=== PATIENT | male | born 1970 ===

== ENCOUNTER 2018-12-01 12:49 | Emergency (ER) | payer OTHER ==
--- NOTE | 2018-12-01 13:26 | ED PDOC ---
Lower Extremity Pain/Injury Time Seen by Provider: 12/01/18 13:18 Chief Complaint (Nursing): Lower Extremity Problem/Injury Chief Complaint (Provider): Lower Extremity Problem/Injury History Per: Patient History/Exam Limitations: no limitations Onset/Duration Of Symptoms: Days (x14) Current Symptoms Are (Timing): Still Present Additional Complaint(s): 48 y/o male with a PMHx of right nephrectomy s/p trauma presents to the ED for evaluation of bilateral thigh pain, onset two weeks ago. Patient states that at work, he lifts heavy objects using his legs. Otherwise, patient denies back pain, weakness, paresthesias, fever, chest pain and shortness of breath. PMD: none provided Past Medical History Reviewed: Historical Data, Nursing Documentation, Vital Signs Vital Signs: Last Vital Signs Temp 97.4 F L 12/01/18 13:09 Pulse 101 H 12/01/18 13:09 Resp 20 12/01/18 13:09 BP 131/78 12/01/18 13:09 Pulse Ox 99 12/01/18 13:09 - Medical History PMH: No Chronic Diseases - Surgical History Surgical History: No Surg Hx - Family History Family History: States: Unknown Family Hx - Home Medications Home Medications: Ambulatory Orders Medication Instructions Recorded traMADol [Ultram] 50 mg PO Q8 #10 tab 12/01/18 - Allergies Allergies/Adverse Reactions: Allergies Allergy/AdvReac Type Severity Reaction Status Date / Time No Known Allergies Allergy Verified 12/01/18 13:09 Review of Systems ROS Statement: Except As Marked, All Systems Reviewed And Found Negative Constitutional: Negative for: Fever Cardiovascular: Negative for: Chest Pain Respiratory: Negative for: Shortness of Breath Musculoskeletal: Positive for: Leg Pain (bilteral thigh pain). Negative for: Back Pain Neurological: Negative for: Weakness Physical Exam - Reviewed Nursing Documentation Reviewed: Yes Vital Signs Reviewed: Yes - Physical Exam Appears: Positive for: No Acute Distress Head Exam: Positive for: ATRAUMATIC Skin: Positive for: Normal Color Eye Exam: Positive for: Normal appearance Neck: Positive for: Normal Cardiovascular/Chest: Positive for: Regular Rate, Rhythm. Negative for: Murmur Respiratory: Positive for: Normal Breath Sounds. Negative for: Respiratory Distress Back: Positive for: Normal Inspection. Negative for: L CVA Tenderness, R CVA Tenderness, Vertebral Tenderness, Other (spinal tenderness or deformity) Extremity: Positive for: Tenderness (tenderness to the anterior thighs bilaterally). Negative for: Swelling (thigh), Other (erythema) Neurologic/Psych: Positive for: Alert, Oriented. Negative for: Motor/Sensory Deficits - Laboratory Results Result Diagrams: 12/01/18 13:30 - ECG O2 Sat by Pulse Oximetry: 99 (RA) Pulse Ox Interpretation: Normal Medical Decision Making Medical Decision Making: Time: 1322 Impression: Will obtain CPK and Renal function to rule out rhabdomyolysis and US to rule out DVT Plan: -- CMP -- Creatine Phosphokinase -- US Duplex Lower Extremity Vein Bilateral US Time: 1434 US RESULTS FINDINGS: COMMON FEMORAL VEIN: Right CFV: Unremarkable. Left CFV: Unremarkable. SUPERFICIAL FEMORAL VEIN: Right SFV: Unremarkable. Left SFV: Unremarkable. POPLITEAL VEIN: Right Popliteal: Unremarkable. Left Popliteal: Unremarkable. POSTERIOR TIBIAL VEIN: Right PTV: Unremarkable. Left PTV: Unremarkable. OTHER FINDINGS: None. IMPRESSION: No evidence of deep venous thrombosis. Scribe Attestation: Documented by Oseas Fuentes, acting as a scribe for Arnoldo Spaulding MD. Provider Scribe Attestation: All medical record entries made by the Scribe were at my direction and personally dictated by me. I have reviewed the chart and agree that the record accurately reflects my personal performance of the history, physical exam, medical decision making, and the department course for this patient. I have also personally directed, reviewed, and agree with the discharge instructions and disposition. Disposition - Clinical Impression Clinical Impression: Rhabdomyolysis - Patient ED Disposition Is Patient to be Admitted: No - Disposition Referrals: [facility] [Outside] Disposition: Routine/Home Disposition Time: 17:36 Condition: FAIR Additional Instructions: Vianney mucho liquido. Regresa and dos zavaleta para repetir la prueba de jamee Prescriptions: traMADol [Ultram] 50 mg PO Q8 #10 tab Instructions: Rhabdomyolysis Forms: [facility] (Nepali) Print Language: HUNGARIAN
[2018-12-01 13:45] LABS: ALB/GLOB RATIO 1.4 (1.0-2.1); ALBUMIN 4.3 g/dL (3.5-5.0); ALT/SGPT 49 U/L (21-72); AST/SGOT 46 U/L (17-59); BLOOD UREA NITROGEN 23 mg/dl (9-20); CALCIUM 9.2 mg/dL (8.4-10.2); GFR NON-AFRICAN AMERICAN 59
--- NOTE | 2018-12-01 14:38 | US ---
Date of service: 12/01/2018 PROCEDURE: Bilateral lower extremity venous duplex Doppler. HISTORY: Bilat thigh pain COMPARISON: None available. TECHNIQUE: Bilateral common femoral, superficial femoral, popliteal and posterior tibial veins were evaluated. Flow was assessed with color Doppler, compressibility, assessment of phasic flow and augmentation response. FINDINGS: COMMON FEMORAL VEIN: Right CFV: Unremarkable. Left CFV: Unremarkable. SUPERFICIAL FEMORAL VEIN: Right SFV: Unremarkable. Left SFV: Unremarkable. POPLITEAL VEIN: Right Popliteal: Unremarkable. Left Popliteal: Unremarkable. POSTERIOR TIBIAL VEIN: Right PTV: Unremarkable. Left PTV: Unremarkable. OTHER FINDINGS: None. IMPRESSION: No evidence of deep venous thrombosis.
[2018-12-01] MEDS ORDERED: Sodium Chloride 0.9% 1,000 ML IV STA (14:43)
[2018-12-01 18:07] VITALS: BP 119/74; PULSE 71; RESP 18; TEMP 98.4; O2SAT 98
== END 2018-12-01 18:08 | disposition home or self-care (01) ==
LOC: H.ER 12:49
DX: M62.82 Rhabdomyolysis (principal)
CPT/HCPCS: 80053; 82550; 93970; 96360; 96361; 99284; J7030